=== PATIENT | female | born 1980 | race Caucasian/White ===

== ENCOUNTER 2016-12-06 19:44 | Emergency (ER) | payer MEDICAID, MEDICARE ==
[~2016-12-06] VITALS: Ht 160 cm; Wt 100.0 kg
[~2016-12-06 19:44] MED LIST: ALBUTEROL INHALER INH; CITALOPRAM PO; ESTRADIOL PO; GABAPENTIN PO; LANS30CA8 PO; LORATADINE PO; METH500T7 PO; PROMETHAZINE PO; PROZOSIN PO; QVAR INH; ULTRAM PO; [UNRECOGNIZED DRUG - OTHER] PO; [UNRECOGNIZED DRUG - OTHER] PO
[2016-12-06 19:58] VITALS: BP 147/88; PULSE 63; RESP 24; O2SAT 96
--- NOTE | 2016-12-06 20:16 | ED.REPORT ---
HPI-Abd Pain F Under 40 Date of Service Dec 06, 2016 ED Provider: Gregory Barajas DO Pt is a 36 year old female with a history of gastroparesis, fibromyalgia, ASD who presents to the ED complaining of epigastric abdominal pain that radiates to her right side onset 16:30 today. She c/o associated dizziness, vertigo, diaphoresis, and nausea. Pt denies vomiting, fevers, dysuria, recent illness, and chills. She took Zofran, Cloretazine, and nausea medication to relieve the symptoms. Pt denies appendectomy, but reports a history of cholecystectomy and hysterectomy. Nursing Notes Stated Complaint: ABDOMINAL PAIN,NAUSEA,DIZZINESS Chief Complaint: Female Abdominal Pain Nursing Notes Reviewed: Yes Allergies: Coded Allergies: Cat Dander (Verified Allergy, Unknown, 12/06/16) Dog Dander (Verified Allergy, Unknown, 12/06/16) Haloperidol Lactate (Verified Allergy, Unknown, 12/06/16) adhesive (Verified Allergy, Unknown, 12/06/16) baclofen (Verified Allergy, Unknown, 12/06/16) ciprofloxacin (Verified Allergy, Unknown, 12/06/16) haloperidol (Verified Allergy, Unknown, 12/06/16) ketorolac (Verified Allergy, Unknown, 12/06/16) metoclopramide HCl (Verified Allergy, Unknown, 12/06/16) morphine (Verified Allergy, Unknown, 12/06/16) pollen extracts (Verified Allergy, Unknown, 12/06/16) propoxyphene (Verified Allergy, Unknown, 12/06/16) sumatriptan (Verified Allergy, Unknown, 12/06/16) Scheduled ([Estradiol]) 2 MG PO DAILY ([Citalopram]) 40 MG PO DAILY ([Loratadine]) 10 MG PO DAILY ([Gabapentin]) 600 MG PO TID 2 TABLETS TID ([Prozosin]) 2 MG PO TID ([Albuterol Inhaler]) INH PRN ([Ultram]) 50 MG PO PRN ([Qvar]) INH PRN ([Promethazine]) 25 MG PO PRN ([Onancatron]) PO PRN ([Maxol]) 10 MG PO PRN Lansoprazole-Expunged Drug, Do Not Renew! (Lansoprazole-Expunged Drug, Do Not Renew!) 30 Mg Capsule.dr 30 MG PO BID Methocarbamol-Expunged Drug, Do Not Renew! (Methocarbamol-Expunged Drug, Do Not Renew!) 500 Mg Tablet 500 MG PO PRN Scheduled PRN Meclizine (Bonine) 25 Mg Tab.chew 25 MG PO DAILY PRN PRN For Dizziness General Time Seen by MD: 20:15 Chief Complaint Abdominal pain Hx Obtained From: Patient Arrived By: Walk-in Sudden in Onset?: No Onset Occurred: 5 - 8 hours ago Symptom Duration: Since onset Location: : RLQ Quality: Painful Severity: Current: Moderate Severity: Maximum: Moderate Recent Healthcare: No recent doctor visit, No recent hospitalization Similar Sx Previous: No Past Medical History Past Medical History Asthma Depression Gastroparesis Past Surgical History Sinus Reports: Cholecystectomy, Hysterectomy Smoking History Unknown if Ever Smoker Social History Unspecified substance use Alcohol Use: Denies alcohol use Review of Systems + Vertigo Constitutional: Denies: Chills, Fever GI: Reports: Abdominal pain, Nausea, Denies: Vomiting Female: Denies: Dysuria Complete sys rev & neg: except as marked. Skin: Reports Diaphoresis Neurologic: Reports: Dizziness Physical Exam Initial Vital Signs Vital Signs (First) Date Time Temp Pulse Resp B/P Pulse Ox O2 Delivery O2 Flow Rate FiO2 12/06/16 19:58 36.7 63 24 147/88 96 Room Air Initial VS: Reviewed ENT: Mucous membranes moist, Conjunctiva normal, No scleral icterus Neck: Supple, Full range of motion Extremities: Vascular intact, Neuro intact Skin: Warm, Dry, No cyanosis Neurologic: Alert, Oriented, Nonfocal Psychiatric: Mood/affect normal, Behavior normal General/Constitutional: Awake, Alert, Cooperative Behavior: Positive: Anxious Respiratory / Chest: Atraumatic, Breath sounds NL, Breath sounds = bilat Cardiovascular: Heart rate NL, Regular rhythm, Heart sounds NL Abdomen: Atraumatic, Soft Tenderness/Guarding/Rebound: Positive: Tender RLQ... (Moderate) Back: Atraumatic, Full range of motion Interpretation & Diagnostics Lab Results Interpretation Result Diagram: 12/06/16 2100 12/06/16 2100 Test 12/06/16 20:45 12/06/16 21:00 Urine Color Straw (YELLOW) Urine Appearance Hazy (CLEAR,HAZY) Urine pH 5.5 (5.0-8.0) Urine Specific [place] 1.005 (1.003-1.035) Urine Protein Negativemg/dL (NEG,TRACE) Urine Glucose (UA) Negativemg/dL (NEGATIVE) Urine Ketones Negativemg/dL (NEGATIVE) Urine Occult Blood Negative (NEGATIVE) Urine Nitrite Negative (NEGATIVE) Urine Bilirubin Negative (NEGATIVE) Urine Urobilinogen Normalmg/dL (NORMAL) Urine Leukocyte Esterase Negative (NEGATIVE) Urine RBC 0-2/hpf (0-2) Urine WBC 0-5/hpf (0-5) Urine Epithelial Cells Few/hpf (NONE-MOD) Urine Crystals None seen (NONE SEEN) Urine Bacteria Few/hpf (NONE-FEW) Urine Hyaline Casts None/lpf (NONE) Urine Granular Casts None seen (NONE SEEN) Urine Waxy Casts None seen (NONE SEEN) Urine Red Blood Cell Casts None seen (NONE SEEN) Urine White Blood Cell Casts None seen (NONE SEEN) Urine Mucus None seen (None Seen) Urine Trichomonas None seen (NONE SEEN) Urine Yeast None (NONE SEEN) Urinalysis Comment None Urine Culture Reflexed Not indicated Hold Urine Received (Received) White Blood Count 6.9th/mm3 (3.8-10.1) Red Blood Count 4.50mil/mm3 (3.90-5.20) Hemoglobin 13.3g/dL (12.0-15.6) Hematocrit 38.5% (35.0-46.0) Mean Corpuscular Volume 85.6fL (81-100) Mean Corpuscular Hemoglobin 29.6pg (27.0-35.0) Mean Corpuscular Hemoglobin Concent 34.5% (32.0-37.0) Red Cell Distribution Width 13.5% (12.3-15.4) Platelet Count 287bil/L (150-400) Neutrophils (%) (Auto) 65.1% (40-74) Lymphocytes (%) (Auto) 24.2% (14-46) Monocytes (%) (Auto) 6.9% (4-12) Eosinophils (%) (Auto) 3.4% (0-5) Basophils (%) (Auto) 0.3% (0-3) Sodium Level 136mEq/L (134-144) Potassium Level 3.7mEq/L (3.5-5.2) Chloride Level 95mEq/L (97-108) Carbon Dioxide Level 28mmol/L (18-29) Blood Urea Nitrogen 11mg/dL (6-20) Creatinine 0.76mg/dL (0.57-1.00) Estimat Glomerular Filtration Rate 122mL/min (>59) Glucose Level 106mg/dL (60-99) Calcium Level 9.8mg/dL (8.5-10.1) Magnesium Level 1.9mg/dL (1.6-2.6) Total Bilirubin 0.3mg/dL (0.0-1.2) Aspartate Amino Transf (AST/SGOT) 72U/L (0-50) Alanine Aminotransferase (ALT/SGPT) 87U/L (0-32) Alkaline Phosphatase 120U/L (25-150) Total Protein 7.7g/dL (6.4-8.4) Albumin 4.5g/dL (3.4-5.0) Lipase 12U/L (13-60) Hold Jenkins Top Tube Received (Received) CT Abd / Pelvis Interpretation IMPRESSION: No CT findings to explain the patient's clinical symptoms. Transmitted to the ED at 22:58 by Andrea Cordova MD. Study type: Abdominal CT IV contrast Interpretation / Wet Read by: Interpret - Radiologist Re-Eval/Medical Decision Med Decision/Clinical Course 46-year-old female with history of fibromyalgia, irritable bowel syndrome, and gastroparesis of unknown origin presents with abdominal pain. On exam she is predominately tender in the right lower quadrant. It is no evidence of UTI on testing today. Blood work is unremarkable, however she remains quite tender in the right lower quadrant so CT abdomen and pelvis with contrast was performed. This test returned negative and there are no explanations for her abdominal pain , other than her previously diagnosed irritable bowel syndrome. She has a prescription for dicyclomine at home which I advised her to take for abdominal pain/cramping. She also complained about vertigo and initially noted that meclizine did not seem to help much, however the time of discharge she was feeling much better and requested a prescription for meclizine to take at home should this vertigo recur. Source of Hx: Old records Re-Evaluation/Progress : Time of Eval: 23:39 )( Re-Eval Abdomen: Soft Re-Evaluation/Progress Note: Pt rechecked. Pt reports minimal relief of vertigo. Informed pt of plan for discharge. Pt understands and agrees with plan for discharge. F/U instructions and RTER warnings given. All questions addressed. Counseled Regarding: Diagnosis, Lab results, Need for follow-up, When/why to return to ED Discharge & Departure Primary Impression: Right lower quadrant abdominal pain Additional Impressions: Irritable bowel syndrome Irritable bowel syndrome type: with both diarrhea and constipation Qualified Code: K58.2 - Mixed irritable bowel syndrome Vertigo Ruled Out: Appendicitis, UTI (urinary tract infection) Disposition: Home Discharge Condition All VS Reviewed: Yes Condition: Stable Patient Instructions: Acute Abdominal Pain (ED), Vertigo (ED) Additional Instructions: Thank you for trusting us with your care today. Your lab work and your CT scan did not reveal a serious cause for your pain. I believe that ear pain may be related to irritable bowel syndrome. I recommend that you take dicyclomine as needed, as previously prescribed to help with this. For the vertigo you are experiencing you can take meclizine 25 mg daily. A prescription is provided. Please follow-up with your PCP next week, return to the ER for new or worsening symptoms. Referrals: [facility] Scribe Attestation Portions of this note were transcribed by Marianne Chew. I, Dr. Barajas personally performed the history, physical exam and medical decision-making; I reviewed and confirmed the accuracy of the information in the transcribed note. Signed by: Elayne Paez, 12/06/16 and 21:30. copies to: [facility] Gregory Barajas DO Dec 06, 2016 20:16 Marianne Trevizo Dec 06, 2016 20:22
[2016-12-06] MEDS ORDERED: 0.9% Sodium Chloride 1,000 ML IV ONE (21:02)
[2016-12-06] MEDS ORDERED: Iohexol 300 mg/mL 30 mL Inj PO ONE (21:05)
[2016-12-06 21:19] LABS: BASOPHILS % (AUTO) 0.3 % (0-3); EOSINOPHILS % (AUTO) 3.4 % (0-5); MONOCYTES % (AUTO) 6.9 % (4-12); Mean Corpuscular Hemoglobin 29.6 pg (27.0-35.0); Mean Corpuscular Volume 85.6 fL (81-100); NEUTROPHILS % (AUTO) 65.1 % (40-74); Platelet Count 287 bil/L (150-400)
[2016-12-06] MEDS: Ondansetron 2 mg/mL 2 mL Inj IVPUSH PRN ×2 (21:22→23:11)
[2016-12-06] MEDS: HYDROmorphone 0.5 mg/0.5 mL iSecure Syringe IVPUSH PRN ×4 (21:22→23:51)
[2016-12-06 21:40] LABS: Magnesium 1.9 mg/dL (1.6-2.6)
[2016-12-06 21:42] LABS: APPEARANCE,URINE HAZY (CLEAR,HAZY); COLOR,URINE STRAW (YELLOW); PH,URINE 5.5 (5.0-8.0)
[2016-12-06 21:43] LABS: OCCULT BLOOD,URINE NEGATIVE (NEGATIVE); UROBILINOGEN,URINE NORMAL (NORMAL)
[2016-12-07] MEDS ORDERED: MECL-114 PO (00:03)
[2016-12-07 00:17] VITALS: BP 145/81; PULSE 66; RESP 20; O2SAT 98
--- NOTE | 2016-12-07 07:28 | DRSVH ---
PROCEDURE: CT ABDOMEN AND PELVIS WITH CONTRAST ([id number]) INDICATIONS: RLQ abd pain TECHNIQUE: After the administration of oral and intravenous contrast, 5 mm thick sections acquired from the diap hragms to the symphysis. 5 mm thick coronal and sagittal reformats were performed. For radiation do se reduction, the following was used: automated exposure control, adjustment of mA and/or kV accordi ng to patient size. COMPARISON: None. FINDINGS: Image quality: Excellent. ABDOMEN: Lung bases: Lung bases are clear. Heart size is normal. Solid organs: Liver and spleen are normal in size and enhancement. Gallbladder surgically absent. Biliary system is non-dilated. Pancreas enhances normally. No adrenal nodules. Kidneys are normal in size and enhancement, without hydronephrosis. Peritoneum and bowel: Stomach contains a large amount of debris. The small bowel, and colon loops are normal in caliber and wall thickness. No free fluid or air. Nodes and vessels: No retroperitoneal or mesenteric adenopathy. Aorta and inferior vena cava are no rmal in caliber. Miscellaneous: No ventral hernias. PELVIS: Genitourinary: Bladder wall thickness is normal. Miscellaneous: No inguinal hernias or adenopathy. Bones: No suspicious bony lesions. No vertebral body compression fractures. IMPRESSION: No acute abnormality. Normal appendix. Dictated by: Juan Hassan M.D. on 12/07/2016 at 7:24 Approved by: Juan Hassan M.D. on 12/07/2016 at 7:27
== END 2016-12-07 00:26 | disposition home or self-care (01) ==
LOC: SED 19:44
DX: R10.31 Right lower quadrant pain (principal); K58.2 Mixed irritable bowel syndrome; R42 Dizziness and giddiness; Z90.710 Acquired absence of both cervix and uterus; Z88.1 Allergy status to other antibiotic agents; Z88.5 Allergy status to narcotic agent; Z88.8 Allergy status to other drugs, medicaments and biological substances
CPT/HCPCS: 36415; 74177; 80053; 81000; 81025; 83690; 83735; 85025; 96374; 96375; 96376; 99285; J1170; J2405; J7030; Q9967